=== PATIENT | male | born 1945 | race Caucasian/White ===

== ENCOUNTER 2017-03-22 10:16 | Emergency (ER) | payer MEDICARE ==
[2017-03-22] MEDS ORDERED: FENTANYL 100 MCG/2 ML VIAL ONE (10:37)
[2017-03-22] MEDS ORDERED: ONDANSETRON HCL 4 MG/2 ML VIAL ONE (11:26)
--- NOTE | 2017-03-22 11:51 | ER PHYSICIAN DOCUMENTATION ---
Physician Documentation [facility] Name:Mark Porter Age:71 yrs Sex:Male :1945 Arrival Date:03/22/2017 Time:10:16 Bed4 Private MD:Brandon Suresh ED, Tom Disposition: 03/23 09:29 Chart complete. tl1 Disposition: 03/22/17 11:03 Transfer ordered to [facility]. Diagnosis is Acute Low Back Pain. - Reason for transfer: Specialty. - Accepting physician is Jana Hope. - Condition is Good. - Problem is new. - Symptoms have improved. COBRA Form completed? Transfer - Mode of Transportation Ambulance HPI: 03/22 10:30 This 71 yrs old Male presents to ER via EMS with complaints of Back Pain. tl1 09:00 The patient presents with pain that is acute, that is chronic. he sustained a tl1 compression fracture in January while shoveling snow. This was documented on x-rays February 13. 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 He has a neurosurgery appointment scheduled 9 days from now, but today his pain is severe and unmanageable. He tried to sit down in his chair this AM and was unable to, sliding down onto the floor unable to move. He is [facility] Med[facility]. He denies incontinence, F/C/S, or new N/W/T.. Historical: - Allergies: PENICILLINS; CILOXIN; - Home Meds: 1. Coumadin Oral Unknown once daily 2. Metoprolol Tartrate Oral Unknown 2 times per day 3. LIDOCAINE PATCH 4. Fentanyl Patch Topical 5. Albuterol Nebulizer 6. aspirin 81 mg oral tab 1 tab once daily 7. losartan oral 8. Niacin Oral - PMHx: CAD; cardiac stent; Tachycardia Unspecified (August 21, 2014); Myocardial Infarction - : Rule out (August 21, 2014); Dehydration (August 21, 2014); - PSHx: neck surgery; CABG; cataract; - Tetanus: < 10 years. - Ebola Screening: : Patient denies travel to an Ebola-affected area in the 21 days before illness onset. No symptoms or risks identified at this time. . - Immunization history: Flu Vaccine unknown. - Social history: Smoking status: Patient states was never smoker of tobacco. ROS: 09:00 Back: Positive for decreased range of motion, pain at rest, pain with movement, tl1 radiated pain. 09:00 All other systems are negative. Exam: 10:30 Constitutional: The patient appears alert, awake, well developed, well hydrated, well tl1 groomed, well nourished, in obvious distress, severely distressed, in obvious pain, restless, uncomfortable. 10:30 Head/face: Exam is negative for 10:30 Neck: ROM/movement: is normal, is supple. 10:30 Cardiovascular: Rate: normal. 10:30 Respiratory: the patient does not display signs of respiratory distress, Respirations: normal, Breath sounds: are normal. 10:30 Abdomen/GI: Palpation: abdomen is soft and non-tender. 10:30 Back: pain, that is severe, of the lumbar area, ROM is painful, decreased, normal spinal alignment noted, CVA tenderness, is absent, vertebral tenderness, is not appreciated, muscle spasm, is not present. 10:30 Neuro: Orientation: is normal, Mentation: is normal, Memory: is normal, Cranial nerves: grossly normal, Motor: moves all fours, strength is 5/5 in the right hand, left hand, right foot and left foot, Sensation: light touch sense is normal, Gait: unable to assess, Deep tendon reflexes are 0 (absent) in the right Achilles and left Achilles, 1 (trace) + in the right patellar and left patellar. Vital Signs: 10:22 BP 180 / 82; Pulse 86; Resp 18; Temp 98.7; Pulse Ox 92% on R/A; Weight 86.18 kg; Height st 5 ft. 9 in. (175.26 cm); Pain 1/10; 10:36 BP 160 / 80 (auto/); Pulse 69; Resp 16; Pulse Ox 93% on R/A; Pain 2/10; lc 11:21 BP 140 / 70; Pulse 68; Resp 16; Pulse Ox 87% on R/A; Pain 1/10; lc 11:22 Pulse Ox 95% on 2 lpm NC; lc 11:48 BP 155 / 80; Pulse 64; Resp 14; Pulse Ox 93% on 2 lpm NC; Pain 1/10; lc 10:22 Body Mass Index 28.06 (86.18 kg, 175.26 cm) st MDM: 10:45 Patient medically screened. tl1 11:00 Data reviewed: vital signs, nurses notes, old medical records, and as a result, I will tl1 *Transfer Patient. Counseling: I had a detailed discussion with the patient and/or guardian regarding: the historical points, exam findings, and any diagnostic results supporting the discharge/admit diagnosis, radiology results, the need to transfer to another facility. Response to treatment: the patient's symptoms have mildly improved after treatment, and as a result, I will admit patient. 03/22 11:22 Order name: Oxygen; Complete Time: 11:22 Dispensed Medications: 11:14 Drug: Zofran 4 mg; Route: IVP; Infused Over: 2 mins; Site: left hand; 11:44 Follow up: Response: No adverse reaction 11:16 Drug: Dilaudid 1 mg; Route: IVP; Infused Over: 2 mins; Site: left hand; 11:44 Follow up: Response: Pain is decreased lc Signatures: Margie Lacy, DELORES RN Ruddy Fowler MD MD tl1
--- NOTE | 2017-03-22 11:51 | ER NURSING DOCUMENTATION ---
Nurse's Notes [facility] Name:Mark Porter Age:71 yrs Sex:Male :1945 Arrival Date:03/22/2017 Time:10:16 Bed4 Private MD:Brandon Suresh Diagnosis:Acute Low Back Pain Presentation: 03/22 10:21 Acuity: DERRICK 3 st 10:26 Presenting complaint: Patient states: CHRONIC LUMBAR STRESS FRACTURES. TRIED TRAMADOL, lc LIDOCAINE PATCHES AND FENTANYL PATCH THIS WEEK. THIS AM UNABLE TO GET PAIN CONTROLLED. NO NEW TRAUMA. Transition of care: Home. 10:26 Method Of Arrival: EMS: 410 lc 10:46 Care prior to arrival: Medication(s) given: Fentanyl 100MCG. lc Triage Assessment: 10:32 General: Appears uncomfortable, Behavior is cooperative. Pain: Complains of pain in lc lumbar area Pain radiates to left low back and right low back Pain currently is 3 out of 10 on a pain scale. Quality of pain is described as throbbing, Pain began ALL WEEK Aggravated by increased activity. Derm: Skin is pink, warm & dry. Musculoskeletal: Circulation, motion, and sensation intact Capillary refill < 3 seconds Range of motion intact in all extremities. Tenderness present in lumbar area. Historical: - Allergies: PENICILLINS; CILOXIN; - Home Meds: 1. Coumadin Oral Unknown once daily 2. Metoprolol Tartrate Oral Unknown 2 times per day 3. LIDOCAINE PATCH 4. Fentanyl Patch Topical 5. Albuterol Nebulizer 6. aspirin 81 mg oral tab 1 tab once daily 7. losartan oral 8. Niacin Oral - PMHx: CAD; cardiac stent; Tachycardia Unspecified (August 21, 2014); Myocardial Infarction - : Rule out (August 21, 2014); Dehydration (August 21, 2014); - PSHx: neck surgery; CABG; cataract; - Tetanus: < 10 years. - Ebola Screening: : Patient denies travel to an Ebola-affected area in the 21 days before illness onset. No symptoms or risks identified at this time. . - Immunization history: Flu Vaccine unknown. - Social history: Smoking status: Patient states was never smoker of tobacco. Screenin:34 Infectious Disease Risk None. Abuse screen: Denies threats or abuse. Denies injuries lc from another. Nutritional screening: No deficits noted. Assessment: 10:33 Reassessment: No changes from previously documented assessment. Neuro: Level of lc Consciousness is awake, alert, Oriented to person, place, time, event, Registered Dental Assistant Rda are equal bilaterally Moves all extremities. Speech is normal. 10:55 Reassessment: DENIES NEED FOR PAIN MEDS AT THIS TIME.. lc 11:20 Reassessment: DECISION FOR TRANSFER FOR PAIN MANAGEMENT. IV MEDS GIVEN BEFORE TRANSFER. lc . Vital Signs: 10:22 BP 180 / 82; Pulse 86; Resp 18; Temp 98.7; Pulse Ox 92% on R/A; Weight 86.18 kg; Height st 5 ft. 9 in. (175.26 cm); Pain 1/10; 10:36 BP 160 / 80 (auto/); Pulse 69; Resp 16; Pulse Ox 93% on R/A; Pain 2/10; lc 11:21 BP 140 / 70; Pulse 68; Resp 16; Pulse Ox 87% on R/A; Pain 1/10; lc 11:22 Pulse Ox 95% on 2 lpm NC; lc 11:48 BP 155 / 80; Pulse 64; Resp 14; Pulse Ox 93% on 2 lpm NC; Pain 1/10; lc 10:22 Body Mass Index 28.06 (86.18 kg, 175.26 cm) st ED Course: 10:17 Patient arrived in ED. arc 10:18 Brandon Suresh MD is Private Physician. arc 10:21 Alia Figueroa, RN is Primary Nurse. st 10:[address] 10:22 Margie Lacy, DELORES is Primary Nurse. lc 10:34 Valuables Remains with patient Patient has correct armband on for positive lc identification. Placed in gown. Bed in low position. Call light in reach. Adult w/ patient. 10:35 Maintain field IV. Dressing intact. Good blood return noted. Site clean & dry. Gauge & lc site: 20G TO LEFT HAND. 10:45 Ruddy Fischer MD is Attending Physician. tl1 11:22 Oxygen Oxygen administration via nasal cannula @ 2L/min. lc Administered Medications: 11:14 Drug: Zofran 4 mg; Route: IVP; Infused Over: 2 mins; Site: left hand; lc 11:44 Follow up: Response: No adverse reaction lc 11:16 Drug: Dilaudid 1 mg; Route: IVP; Infused Over: 2 mins; Site: left hand; lc 11:44 Follow up: Response: Pain is decreased Outcome: 11:03 ER care complete, transfer ordered by MD. padilla 11:48 Transferred: Patient will be transferred to: [facility]. Facility Acceptance Time: March 22, 2017 at 11:05 Patient's face sheet was faxed to accepting facility. Face Sheet included patient's name, address, age, gender, contact information and insurance information. Patient will be transported by: [facility] ground. Report called to: DHARMESH ESTRELLA Nurse and Physician Charting and Notes were sent to Accepting Facility. All tests and/or procedures with results, if applicable, were sent to accepting facility. 11:48 Condition: stable 11:48 Report given to DHARMESH ESTRELLA 11:48 Instructed on need for transfer COPY OF MRI AND XRAYS SENT 11:50 Patient left the ED. Signatures: Alia Figueroa RN Margie Liz RN RN lc Leigh, Tom, MD MD tl1 Jada Fajardo, Reg Reg arc
== END 2017-03-22 11:51 | disposition short-term general hospital (02) ==
LOC: ER 10:16
DX: M54.5 Low back pain (principal); S32.000D Wedge compression fracture of unspecified lumbar vertebra, subsequent encounter for fracture with routine healing; I25.10 Atherosclerotic heart disease of native coronary artery without angina pectoris; Z79.899 Other long term (current) drug therapy; Z95.5 Presence of coronary angioplasty implant and graft; Z99.89 Dependence on other enabling machines and devices; Z74.3 Need for continuous supervision
CPT/HCPCS: 96374; 96375; 99282; 99285; A0425; A0427; J1170; J2405; J3010